=== PATIENT | female | born 1980 | race Caucasian/White ===

== ENCOUNTER 2016-10-06 15:57 | Emergency (ER) | payer BC ==
[2016-10-06] MEDS ORDERED: IPRATROPIUM/ALBUTEROL (0.5MG/3MG) NEB INH ONE (17:15)
--- NOTE | 2016-10-06 18:03 | Emergency Department Record ---
History of Present Illness - General Chief Complaint: Cough Stated Complaint: cough Time Seen by Provider: 10/06/16 17:10 Source: Patient Mode of Arrival: Ambulatory Limitations: No limitations - History of Present Illness Initial Comments: pt has a cough and sob and states her inhaler is not helping. MD Complaint: Cough, Nasal congestion, Rhinorrhea Onset/Timin -: Hour(s) Severity: Mild Consistency: Getting worse Improves With: Nothing Worsens With: Nothing Context: Sick contacts Associated Symptoms: Cough, Nasal congestion, Rhinorrhea, Shortness of breath - Related Data Home Medications Medication Instructions Recorded Confirmed Last Taken Ranitidine HCl [Zantac] 75 mg PO DAILY 11/30/14 10/06/16 06/08/15 Levonorgestrel [Mirena] 1 each IY ASDIR 06/08/15 10/06/16 06/08/15 Albuterol Sulfate [Proair Hfa] 2 puff INH Q6H PRN 10/06/16 10/06/16 10/06/16 15: 30 Previous Rx's Medication Instructions Recorded Benzonatate [Tessalon] 1 cap PO Q8H PRN #20 cap 10/06/16 Promethazine HCl/Codeine 5 - 10 ml PO .AT BEDTIME PRN #60 ml 10/06/16 [Phenergan W/Codeine] Allergies Allergy/AdvReac Type Severity Reaction Status Date / Time methylprednisolone sodium Allergy HIVES Verified 10/06/16 16:41 succinate [From Solu-Medrol] Penicillins Allergy RASH Verified 10/06/16 16:41 Travel Screening - Travel/Exposure Within Last 30 Days Have you traveled within the last 30 days?: No - Travel/Exposure Within Last Year Have you traveled outside the [place] in the last year?: No - Additonal Travel Details Have you been exposed to anyone with a communicable illness?: No - Travel Symptoms Symptom Screening: None Review of Systems Reviewed: No additional complaints except as noted below Constitutional: Reports: As per HPI. Denies: Chills, Fever, Malaise, Night sweats, Weakness, Weight change Eyes: Reports: As per HPI. Denies: Eye discharge, Eye pain, Photophobia, Vision change ENT: Reports: As per HPI. Denies: Congestion, Dental pain, Ear pain, Epistaxis , Hearing loss, Throat pain Respiratory: Reports: As per HPI. Denies: Cough, Dyspnea, Hemoptysis, Stridor, Wheezes Cardiovascular: Reports: As per HPI. Denies: Arrhythmia, Chest pain, Dyspnea on exertion, Edema, Murmurs, Orthopnea, Palpitations, Paroxysmal nocturnal dyspnea, Rheumatic Fever, Syncope Endocrine: Reports: As per HPI. Denies: Fatigue, Heat or cold intolerance, Polydipsia, Polyuria Gastrointestinal: Reports: As per HPI. Denies: Abdominal pain, Constipation, Diarrhea, Hematemesis, Hematochezia, Melena, Nausea, Vomiting Genitourinary: Reports: As per HPI. Denies: Abnormal menses, Discharge, Dyspareunia, Dysuria, Frequency, Hematuria, Incontinence, Retention, Urgency Musculoskeletal: Reports: As per HPI. Denies: Arthralgia, Back pain, Gout, Joint swelling, Myalgia, Neck pain Skin: Reports: As per HPI. Denies: Bruising, Change in color, Change in hair/ nails, Lesions, Pruritus, Rash Neurological: Reports: As per HPI. Denies: Abnormal gait, Confusion, Headache, Numbness, Paresthesias, Seizure, Tingling, Tremors, Vertigo, Weakness Psychiatric: Reports: As per HPI. Denies: Anxiety, Auditory hallucinations, Depression, Homicidal thoughts, Suicidal thoughts, Visual hallucinations Hematological/Lymphatic: Reports: As per HPI. Denies: Anemia, Blood Clots, Easy bleeding, Easy bruising, Swollen glands Past Medical History - SOCIAL HISTORY Smoking Status: Never smoker Alcohol Use: None Drug Use: None - RESPIRATORY Hx Respiratory Disorders: Yes Hx Asthma: Yes - CARDIOVASCULAR Hx Cardio Disorders: No - NEURO Hx Neuro Disorders: No - GI Hx GI Disorders: Yes Hx Reflux: Yes - Hx Genitourinary Disorders: No - ENDOCRINE Hx Endocrine Disorders: Yes Hx Thyroid Disease: Yes (enlarged thyroid, goiters) Comment:: 3 Goiters - MUSCULOSKELETAL Hx Musculoskeletal Disorders: Yes Comment:: scoliosis - PSYCH Hx Psych Problems: No - HEMATOLOGY/ONCOLOGY Hx Hematology/Oncology Disorders: No Family Medical History Any Significant Family History?: Yes Hx Diabetes: Father Hx HTN: Father Physical Exam - General General Appearance: Alert, Oriented x3, Cooperative, Mild distress - Head Head exam: Normal inspection - Eye Eye exam: Normal appearance, PERRL, EOMI Pupils: Normal accommodation - ENT ENT exam: Normal exam, Mucous membranes moist, Normal external ear exam, Normal orophraynx, TM's normal bilaterally Ear exam: Normal external inspection. negative: External canal tenderness Nasal Exam: Normal inspection. negative: Discharge, Sinus tenderness Mouth exam: Normal external inspection, Tongue normal Teeth exam: Normal inspection. negative: Dental caries Throat exam: Normal inspection. negative: Tonsillar erythema, Tonsillar exudate - Neck Neck exam: Normal inspection, Full ROM. negative: Tenderness - Respiratory Respiratory exam: Normal lung sounds bilaterally. negative: Respiratory distress - Cardiovascular Cardiovascular Exam: Regular rate, Normal rhythm, Normal heart sounds - GI/Abdominal GI/Abdominal exam: Soft, Normal bowel sounds. negative: Tenderness - Rectal Rectal exam: Deferred - exam: Deferred - Extremities Extremities exam: Normal inspection, Full ROM, Normal capillary refill. negative: Tenderness - Back Back exam: Reports: Normal inspection, Full ROM. Denies: Muscle spasm, Rash noted, Tenderness - Neurological Neurological exam: Alert, Normal gait, Oriented X3, Reflexes normal - Psychiatric Psychiatric exam: Normal affect, Normal mood - Skin Skin exam: Dry, Intact, Normal color, Warm Course Vital Signs 10/06/16 10/06/16 16:32 17:23 Temperature 99.0 F Pulse Rate 103 H 98 H Respiratory 22 16 Rate Blood Pressure 127/81 Pulse Ox 99 100 - Reevaluation(s) Reevaluation #1: 10/06/16 18:29 pt doing better. Disposition Disposition: Discharge Clinical Impression: URI (upper respiratory infection) Qualifiers: URI type: unspecified URI Qualified Code(s): J06.9 - Acute upper respiratory infection, unspecified Disposition: Home, Self-Care Condition: (1) Good Instructions: Upper Respiratory Infection (ED) Additional Instructions: follow up with family doctor. return sooner if worse. Prescriptions: Promethazine HCl/Codeine [Phenergan W/Codeine] 5 - 10 ml PO .AT BEDTIME PRN #60 ml PRN Reason: Cough Benzonatate [Tessalon] 1 cap PO Q8H PRN #20 cap PRN Reason: Cough Forms: Patient Portal Access
--- NOTE | 2016-10-06 19:08 | Emergency Department Record ---
History of Present Illness - General Chief Complaint: Cough Stated Complaint: cough Time Seen by Provider: 10/06/16 17:10 Source: Patient Mode of Arrival: Ambulatory Limitations: No limitations - History of Present Illness Onset/Timin -: Hour(s) Severity: Mild Consistency: Getting worse Improves With: Nothing Worsens With: Nothing Context: Sick contacts Associated Symptoms: Cough, Nasal congestion, Rhinorrhea, Shortness of breath - Related Data Home Medications Medication Instructions Recorded Confirmed Last Taken Ranitidine HCl [Zantac] 75 mg PO DAILY 11/30/14 10/06/16 06/08/15 Levonorgestrel [Mirena] 1 each IY ASDIR 06/08/15 10/06/16 06/08/15 Albuterol Sulfate [Proair Hfa] 2 puff INH Q6H PRN 10/06/16 10/06/16 10/06/16 15: 30 Previous Rx's Medication Instructions Recorded Azithromycin [Zithromax] 250 mg PO DAILY #6 tab 10/06/16 Benzonatate [Tessalon] 1 cap PO Q8H PRN #20 cap 10/06/16 Promethazine HCl/Codeine 5 - 10 ml PO .AT BEDTIME PRN #60 ml 10/06/16 [Phenergan W/Codeine] Allergies Allergy/AdvReac Type Severity Reaction Status Date / Time methylprednisolone sodium Allergy HIVES Verified 10/06/16 16:41 succinate [From Solu-Medrol] Penicillins Allergy RASH Verified 10/06/16 16:41 Travel Screening - Travel/Exposure Within Last 30 Days Have you traveled within the last 30 days?: No - Travel/Exposure Within Last Year Have you traveled outside the [place] in the last year?: No - Additonal Travel Details Have you been exposed to anyone with a communicable illness?: No - Travel Symptoms Symptom Screening: None Review of Systems Constitutional: Reports: As per HPI. Denies: Chills, Fever, Malaise, Night sweats, Weakness, Weight change Eyes: Reports: As per HPI. Denies: Eye discharge, Eye pain, Photophobia, Vision change ENT: Reports: As per HPI. Denies: Congestion, Dental pain, Ear pain, Epistaxis , Hearing loss, Throat pain Respiratory: Reports: As per HPI. Denies: Cough, Dyspnea, Hemoptysis, Stridor, Wheezes Cardiovascular: Reports: As per HPI. Denies: Arrhythmia, Chest pain, Dyspnea on exertion, Edema, Murmurs, Orthopnea, Palpitations, Paroxysmal nocturnal dyspnea, Rheumatic Fever, Syncope Endocrine: Reports: As per HPI. Denies: Fatigue, Heat or cold intolerance, Polydipsia, Polyuria Gastrointestinal: Reports: As per HPI. Denies: Abdominal pain, Constipation, Diarrhea, Hematemesis, Hematochezia, Melena, Nausea, Vomiting Genitourinary: Reports: As per HPI. Denies: Abnormal menses, Discharge, Dyspareunia, Dysuria, Frequency, Hematuria, Incontinence, Retention, Urgency Musculoskeletal: Reports: As per HPI. Denies: Arthralgia, Back pain, Gout, Joint swelling, Myalgia, Neck pain Skin: Reports: As per HPI. Denies: Bruising, Change in color, Change in hair/ nails, Lesions, Pruritus, Rash Neurological: Reports: As per HPI. Denies: Abnormal gait, Confusion, Headache, Numbness, Paresthesias, Seizure, Tingling, Tremors, Vertigo, Weakness Psychiatric: Reports: As per HPI. Denies: Anxiety, Auditory hallucinations, Depression, Homicidal thoughts, Suicidal thoughts, Visual hallucinations Hematological/Lymphatic: Reports: As per HPI. Denies: Anemia, Blood Clots, Easy bleeding, Easy bruising, Swollen glands Past Medical History - SOCIAL HISTORY Smoking Status: Never smoker Alcohol Use: None Drug Use: None - RESPIRATORY Hx Respiratory Disorders: Yes Hx Asthma: Yes - CARDIOVASCULAR Hx Cardio Disorders: No - NEURO Hx Neuro Disorders: No - GI Hx GI Disorders: Yes Hx Reflux: Yes - Hx Genitourinary Disorders: No - ENDOCRINE Hx Endocrine Disorders: Yes Hx Thyroid Disease: Yes (enlarged thyroid, goiters) Comment:: 3 Goiters - MUSCULOSKELETAL Hx Musculoskeletal Disorders: Yes Comment:: scoliosis - PSYCH Hx Psych Problems: No - HEMATOLOGY/ONCOLOGY Hx Hematology/Oncology Disorders: No Family Medical History Any Significant Family History?: Yes Hx Diabetes: Father Hx HTN: Father Physical Exam - General Limitations: No limitations Course Vital Signs 10/06/16 10/06/16 10/06/16 16:32 17:23 19:01 Temperature 99.0 F 99.3 F Pulse Rate 103 H 98 H 103 H Respiratory 22 16 18 Rate Blood Pressure 127/81 131/81 Pulse Ox 99 100 - Reevaluation(s) Reevaluation #1: 10/06/16 19:05 pt states she started coughing productive yellow now Disposition Clinical Impression: Bronchitis URI (upper respiratory infection) Qualifiers: URI type: unspecified URI Qualified Code(s): J06.9 - Acute upper respiratory infection, unspecified Instructions: Upper Respiratory Infection (ED) Additional Instructions: follow up with family doctor. return sooner if worse. Prescriptions: Promethazine HCl/Codeine [Phenergan W/Codeine] 5 - 10 ml PO .AT BEDTIME PRN #60 ml PRN Reason: Cough Benzonatate [Tessalon] 1 cap PO Q8H PRN #20 cap PRN Reason: Cough Azithromycin [Zithromax] 250 mg PO DAILY #6 tab Forms: Patient Portal Access
== END 2016-10-06 19:01 | disposition home or self-care (01) ==
LOC: ER 15:57
DX: J20.9 Acute bronchitis, unspecified (principal); J06.9 Acute upper respiratory infection, unspecified; R06.02 Shortness of breath; R05 Cough
CPT/HCPCS: 71020; 94640; 99283

== ENCOUNTER 2018-01-28 18:12 | Emergency (ER) | payer BC ==
[2018-01-28] MEDS ORDERED: KETOROLAC 60 MG/2 ML VIAL IM STA (18:33)
[2018-01-28] MEDS ORDERED: DEXAMETHASONE SOD PHOSPHATE 10MG/ML VIAL IM ONE (18:33)
--- NOTE | 2018-01-28 18:38 | Emergency Department Record ---
History of Present Illness - General Chief Complaint: Back Pain/Injury Stated Complaint: PAIN IN BOTH HIPS Time Seen by Provider: 01/28/18 18:15 Source: Patient Mode of Arrival: Ambulatory Limitations: No limitations - History of Present Illness Initial Comments: 38 yo female presents to ED for evaluation of bilateral low back pain symptoms after shoveling mulch for several hours today. Patient reports that she went to her chiropractor for an adjustment, however they would not adjust her without prior to x-rays. Patient denies taking anything for her pain symptoms today. Patient denies urinary retention, fever, h/o IVDA, or LE weakness. Patient denies health problems other than asthma and hypothyroidism. MD Complaint: Back pain Onset/Timin -: Hour(s) Place: School Radiation: Buttocks Severity scale (1-10): 10 Quality: Aching Consistency: Constant Improves With: None Worsens With: None Context: While lifting Associated Symptoms: Denies other symptoms Treatments Prior to Arrival: Other - Related Data Previous Rx's Medication Instructions Recorded Diazepam [Valium] 5 mg PO Q8H PRN #10 tab 01/28/18 Ibuprofen [Motrin] 800 mg PO Q6H PRN #30 tab 01/28/18 Allergies Allergy/AdvReac Type Severity Reaction Status Date / Time methylprednisolone sodium Allergy HIVES Verified 01/28/18 18:24 succinate [From Solu-Medrol] Penicillins Allergy RASH Verified 01/28/18 18:24 Travel Screening - Travel/Exposure Within Last 30 Days Have you traveled within the last 30 days?: No - Travel/Exposure Within Last Year Have you traveled outside the [place] in the last year?: No - Additonal Travel Details Have you been exposed to anyone with a communicable illness?: No - Travel Symptoms Symptom Screening: None Review of Systems Constitutional: Denies: Chills, Fever, Malaise, Night sweats Eyes: Denies: Eye discharge, Eye pain ENT: Denies: Congestion, Ear pain, Epistaxis Respiratory: Denies: Cough, Dyspnea Cardiovascular: Denies: Chest pain, Dyspnea on exertion Endocrine: Denies: Fatigue, Heat or cold intolerance Gastrointestinal: Denies: Abdominal pain, Nausea, Vomiting Genitourinary: Denies: Incontinence, Retention Musculoskeletal: Reports: Back pain Skin: Denies: Bruising, Change in color Neurological: Denies: Abnormal gait, Confusion, Headache, Seizure Psychiatric: Denies: Anxiety Hematological/Lymphatic: Denies: Anemia, Blood Clots Past Medical History - SOCIAL HISTORY Smoking Status: Never smoker Alcohol Use: None Drug Use: None - RESPIRATORY Hx Respiratory Disorders: Yes Hx Asthma: Yes - CARDIOVASCULAR Hx Cardio Disorders: No - NEURO Hx Neuro Disorders: No - GI Hx GI Disorders: Yes Hx Reflux: Yes - Hx Genitourinary Disorders: No - ENDOCRINE Hx Endocrine Disorders: Yes Hx Thyroid Disease: Yes (enlarged thyroid, goiters) Comment:: 3 Goiters - MUSCULOSKELETAL Hx Musculoskeletal Disorders: Yes Comment:: scoliosis - PSYCH Hx Psych Problems: No - HEMATOLOGY/ONCOLOGY Hx Hematology/Oncology Disorders: No Family Medical History Any Significant Family History?: No Hx Diabetes: Father Hx HTN: Father Physical Exam - General General Appearance: Alert, Oriented x3, Cooperative, Moderate distress Limitations: No limitations - Head Head exam: Atraumatic, Normocephalic, Normal inspection Head exam detail: negative: Abrasion, Contusion, Gamboa's sign, General tenderness, Hematoma, Laceration - Eye Eye exam: Normal appearance. negative: Conjunctival injection, Periorbital swelling, Periorbital tenderness, Scleral icterus - ENT Ear exam: negative: Auricular hematoma, Auricular trauma Nasal Exam: negative: Active bleeding, Discharge, Dried blood, Foreign body Mouth exam: negative: Drooling, Laceration, Muffled voice, Tongue elevation - Neck Neck exam: Normal inspection. negative: Meningismus, Tenderness - Respiratory Respiratory exam: Normal lung sounds bilaterally. negative: Rales, Respiratory distress, Rhonchi, Stridor - Cardiovascular Cardiovascular Exam: Regular rate, Normal rhythm, Normal heart sounds - GI/Abdominal GI/Abdominal exam: Soft. negative: Rebound, Rigid, Tenderness - Rectal Rectal exam: Deferred - exam: Deferred - Extremities Extremities exam: Normal inspection. negative: Calf tenderness, Pedal edema, Tenderness - Back Back exam: Reports: Paraspinal tenderness (Bilateral low-lumbar region and SI joints bilaterally). Denies: CVA tenderness (R), CVA tenderness (L) - Neurological Neurological exam: Alert, Oriented X3. negative: Motor sensory deficit - Psychiatric Psychiatric exam: Normal affect, Normal mood - Skin Skin exam: Normal color. negative: Abrasion Type of lesion: negative: abrasion Course Vital Signs 01/28/18 18:16 Temperature 98.4 F Pulse Rate 122 H Respiratory 20 Rate Blood Pressure 147/107 Pulse Ox 98 - Reevaluation(s) Reevaluation #1: 01/28/18 19:02 Patient was reassessed, reports that she is feeling much better and is able to sit up without pain. Patient appears stable for discharge at this time with Valium and Motrin as directed. Repeat Vitals" 119/74, pulse 86. Ambulates with steady gait from the ED as well. Disposition Disposition: Discharge Clinical Impression: Lumbar strain Qualifiers: Encounter type: initial encounter Qualified Code(s): S39.012A - Strain of muscle, fascia and tendon of lower back, initial encounter Disposition: Home, Self-Care Condition: (2) Stable Instructions: Low Back Strain (ED) Additional Instructions: Return to ED if your symptoms worsen or if you have any concerns. Valium and Motrin 800mg as directed. Follow-up with your family doctor in 3-5 days as directed. Prescriptions: Diazepam [Valium] 5 mg PO Q8H PRN #10 tab PRN Reason: Muscle Spasms Ibuprofen [Motrin] 800 mg PO Q6H PRN #30 tab PRN Reason: Pain - Moderate (5-7) Forms: Patient Portal Access Time of Disposition: 18:54 Quality - Quality Measures Quality Measures: N/A - Blood Pressure Screening Does Patient Have Any of the Following: No Blood Pressure Classification: Normal BP Reading Systolic Measurement: 119 Diastolic Measurement: 74 Screening for High Blood Pressure: < Normal BP, F/U Not Required > [G8783] First Hypertensive Follow-up Interventions: Referral to alternative/primary care provider.
== END 2018-01-28 19:11 | disposition home or self-care (01) ==
LOC: ER 18:12
DX: S39.012A Strain of muscle, fascia and tendon of lower back, initial encounter (principal); W24.0XXA Contact with lifting devices, not elsewhere classified, initial encounter; Y93.H1 Activity, digging, shoveling and raking; Y92.9 Unspecified place or not applicable
CPT/HCPCS: 96372; 99283; J1885

== ENCOUNTER 2018-10-18 21:14 | Emergency (ER) | payer BC ==
[2018-10-18] MEDS ORDERED: PREDNISONE 20 MG TAB PO ONE (21:32)
--- NOTE | 2018-10-18 21:37 | Emergency Department Record ---
History of Present Illness - General Chief complaint: Rash Stated complaint: RASH BOTH LEGS Time Seen by Provider: 10/18/18 21:25 Source: Patient Mode of Arrival: Ambulatory Limitations: No limitations - History of Present Illness Initial comments: 38 yo female presents with an itchy rash to both upper thighs for the last 2 days. The onset was after shaving. No other cough, swelling, lip, oral, or throat symptoms. She reports a history of several different foods causing hives. MD complaint: Rash Onset/Timin -: Days(s) Hx Tetanus Toxoid Vaccination: Yes Year of Tetanus Vaccination: unsure Location: LLE, RLE Quality: Other (itches) Improves with: None Worsens with: None Context: None Associated symptoms: Itching Treatments Prior to Arrival: Benadryl - Related Data Previous Rx's Medication Instructions Recorded Hydrocortisone 15 gm TP BID #1 cream..g. 10/18/18 Prednisone [Prednisone 20Mg] 20 mg PO BID #10 tab 10/18/18 Allergies Allergy/AdvReac Type Severity Reaction Status Date / Time methylprednisolone sodium Allergy HIVES Verified 01/28/18 18:24 succinate [From Solu-Medrol] Penicillins Allergy RASH Verified 01/28/18 18:24 Travel Screening - Travel/Exposure Within Last 30 Days Have you traveled within the last 30 days?: No - Travel Symptoms Symptom Screening: None Review of Systems Constitutional: Denies: Chills, Fever, Malaise, Weakness Eyes: Denies: Eye discharge ENT: Denies: Congestion, Throat pain Respiratory: Denies: Cough, Dyspnea, Hemoptysis, Wheezes Cardiovascular: Denies: Chest pain, Palpitations, Syncope Endocrine: Denies: Fatigue Gastrointestinal: Denies: Abdominal pain, Diarrhea, Nausea, Vomiting Genitourinary: Denies: Dysuria, Urgency Musculoskeletal: Denies: Arthralgia, Back pain, Myalgia Skin: Reports: Change in color, Rash. Denies: Bruising Neurological: Denies: Confusion, Headache, Numbness, Vertigo, Weakness Psychiatric: Denies: Anxiety Hematological/Lymphatic: Denies: Blood Clots, Easy bleeding, Easy bruising, Swollen glands Past Medical History - SOCIAL HISTORY Smoking Status: Never smoker - RESPIRATORY Hx Respiratory Disorders: Yes Hx Asthma: Yes - CARDIOVASCULAR Hx Cardio Disorders: No - NEURO Hx Neuro Disorders: No - GI Hx GI Disorders: Yes Hx Reflux: Yes - Hx Genitourinary Disorders: No - ENDOCRINE Hx Endocrine Disorders: Yes Hx Thyroid Disease: Yes (enlarged thyroid, goiters) Comment:: 3 Goiters - MUSCULOSKELETAL Hx Musculoskeletal Disorders: Yes Comment:: scoliosis - PSYCH Hx Psych Problems: No - HEMATOLOGY/ONCOLOGY Hx Hematology/Oncology Disorders: No Family Medical History Any Significant Family History?: Yes Hx Diabetes: Father Hx HTN: Father Physical Exam - General General Appearance: Alert, Oriented x3, Cooperative, No acute distress Limitations: No limitations - Head Head exam: Atraumatic, Normal inspection - Eye Eye exam: Normal appearance, PERRL. negative: Conjunctival injection, Scleral icterus - ENT ENT exam: Normal exam, Mucous membranes moist, Normal orophraynx Ear exam: Normal external inspection Nasal Exam: Normal inspection Mouth exam: Normal external inspection Teeth exam: Normal inspection Throat exam: Normal inspection - Neck Neck exam: Normal inspection, Full ROM. negative: Tenderness - Respiratory Respiratory exam: Normal lung sounds bilaterally. negative: Respiratory distress - Cardiovascular Cardiovascular Exam: Regular rate, Normal rhythm, Normal heart sounds - GI/Abdominal GI/Abdominal exam: Soft. negative: Tenderness - Rectal Rectal exam: Deferred - exam: Deferred - Extremities Extremities exam: Full ROM, Normal capillary refill. negative: Normal inspection, Calf tenderness, Joint swelling, Pedal edema, Tenderness Image of Full Body: 1 - patchy erythematous rash, no blisters, no abnormal warmth - Back Back exam: Reports: Normal inspection. Denies: CVA tenderness (R), CVA tenderness (L) - Neurological Neurological exam: Alert, Oriented X3 - Psychiatric Psychiatric exam: Normal affect, Normal mood. negative: Agitated, Anxious - Skin Skin exam: Dry, Intact, Rash, Urticaria, Warm. negative: Abrasion, Cyanosis, Diaphoretic, Erythema, Mottled, Normal color Type of lesion: Rash Course Vital Signs 10/18/18 21:23 Temperature 98.2 F Pulse Rate [ 78 Pulse Ox Probe] Respiratory 20 Rate Blood Pressure 131/93 [Left Arm] Pulse Ox 96 - Reevaluation(s) Reevaluation #1: The patient denies any history of allergy to Prednisone. She has taken it several times in the past without reaction. 10/18/18 21:42 Disposition Disposition: Discharge Clinical Impression: Rash Disposition: Home, Self-Care Condition: (1) Good Instructions: Acute Rash (ED) Additional Instructions: You may apply Prescriptions: Hydrocortisone 15 gm TP BID #1 cream..g. Prednisone [Prednisone 20Mg] 20 mg PO BID #10 tab Forms: Patient Portal Access Time of Disposition: 21:41 Quality - Quality Measures Quality Measures: N/A - Blood Pressure Screening Does Patient Have Any of the Following: No Blood Pressure Classification: Hypertensive Reading Systolic Measurement: 131 Diastolic Measurement: 93 Screening for High Blood Pressure: < Pre-Hypertensive BP, F/U Documented > [ [id number]] Pre-Hypertensive Follow-up Interventions: Referral to alternative/primary care provider.
== END 2018-10-18 21:53 | disposition home or self-care (01) ==
LOC: ER 21:14
DX: R21 Rash and other nonspecific skin eruption (principal)
CPT/HCPCS: 99282; J7512